=== PATIENT | female | born 1995 | race Hispanic/Latino ===

== ENCOUNTER 2022-04-02 18:20 | Outpatient (CLI) | payer OTHER ==
[~2022-04-02] VITALS: Ht 152.4 cm; Wt 77.0 kg
[2022-04-02] MEDS ORDERED: PRENTAB9 PO (18:57)
[2022-04-02] MEDS ORDERED: HOME MED LIST COMPLETE! XX SCH (19:00)
== END 2022-04-02 19:30 | disposition home or self-care (01) ==
LOC: M LDO 18:20
PROVIDERS: ATTEND Obstetrics & Gynecology
DX: O36.8120 Decreased fetal movements, second trimester, not applicable or unspecified (principal); Z3A.25 25 weeks gestation of pregnancy
CPT/HCPCS: 59025; G0463

== ENCOUNTER 2022-07-10 14:35 | Inpatient (IN) | payer OTHER ==
[~2022-07-10] VITALS: Ht 152.4 cm; Wt 84.7 kg
[2022-07-10] VITALS (8 sets, daily range): BP systolic 130–166; BP diastolic 65–92
[~2022-07-10 14:35] MED LIST: PRENTAB9 PO
[2022-07-10] MEDS ORDERED: TRANEXAMIC ACID INJection 1,000 MG in NS 100 ML IV PRN (15:45)
[2022-07-10] MEDS ORDERED: LR 1,000 ML IV SCH (15:45)
[2022-07-10] MEDS ORDERED: OXYTOCIN DRIP 30 UNITS in IV 1 EA IV PRN ×6 (15:45)
[2022-07-10] MEDS ORDERED: CARBOPROST TROMETHAMINE 250 MCG/ML AMP IM PRN (15:45)
[2022-07-10] MEDS ORDERED: METHYLERGONOVINE MALEATE 0.2 MG/ML VIAL (J2210) IM PRN (15:45)
[2022-07-10] MEDS ORDERED: OXYTOCIN INJ 10 UNITS/ML VIAL (J2590) IV PRN (15:45)
[2022-07-10] MEDS ORDERED: OXYTOCIN INJ 10 UNITS/ML VIAL (J2590) IM PRN (15:45)
[2022-07-10] MEDS ORDERED: LIDOCAINE 1% MDV 20ML VIAL INFIL PRN (15:45)
[2022-07-10 15:50] LABS: HEMATOCRIT 33.3 % (36.0-47.0); HEMOGLOBIN 11.3 g/dl (12.0-15.5); MEAN CORPUSCULAR HEMOGLOBIN 29.3 pg (27.0-33.0); MEAN CORPUSCULAR HGB CONC 33.9 g/dl (32.0-36.5); MEAN CORPUSCULAR VOLUME 86.3 fl (80.0-96.0); PLATELET COUNT, AUTOMATED 252 10^3/uL (150-450); RED BLOOD COUNT 3.86 10^6/uL (4.00-5.40); WHITE BLOOD COUNT 10.6 10^3/uL (4.0-10.0)
[2022-07-10] MEDS ORDERED: HOME MED LIST COMPLETE! XX SCH (15:55)
[2022-07-10] MEDS ORDERED: OXYTOCIN DRIP 30 UNITS in IV 1 EA IV SCH (22:30)
[2022-07-11] VITALS (112 sets, daily range): BP systolic 64–189; BP diastolic 29–97
[2022-07-11 01:44] LABS: ALT/SGPT 27 U/L (7.0-40); BILIRUBIN,TOTAL 0.5 MG/DL (0.3-1.2); CREATININE FOR GFR 0.46 MG/DL (0.55-1.30); GLOMERULAR FILTRATION RATE > 60.0 (>60); LDH LACTATE DEHYDROGENASE 240 U/L (120-246); URIC ACID 5.8 MG/DL (3.1-7.8)
[2022-07-11] MEDS ORDERED: BUTORPHANOL 2 MG/ML INJ (J0595) IV ONE (02:25)
[2022-07-11] MEDS ORDERED: PROMETHAZINE 25MG/ML 1ML VIAL IV ONE (02:25)
[2022-07-11] MEDS: LR 1,000 ML IV SCH (02:46)
[2022-07-11] MEDS ORDERED: hydrALAZINE 20MG/ML 1ML VIAL (J0360 PER 20MG) IV ONE (07:00)
[2022-07-11] MEDS ORDERED: MAGNESIUM *L&D* 4GM/100ML BAG (40MG/ML) IV ONE (07:00)
[2022-07-11] MEDS ORDERED: hydrALAZINE 20MG/ML 1ML VIAL (J0360 PER 20MG) As Ordered ONE (07:02)
[2022-07-11] MEDS: MAG Sulf (OBGYN) 20GM/500ML 20,000 MG in IV 1 EA IV SCH ×2 (07:10→16:21)
[2022-07-11] MEDS ORDERED: hydrALAZINE 20MG/ML 1ML VIAL (J0360 PER 20MG) IV STA (07:44)
[2022-07-11] MEDS ORDERED: LABETALOL 100MG/20ML VIAL IV ONE ×3 (08:45→10:10)
[2022-07-11] MEDS ORDERED: LABETALOL 100MG/20ML VIAL IV STA (12:30)
[2022-07-11] MEDS ORDERED: OXYTOCIN INJ 10 UNITS/ML VIAL (J2590) As Ordered ONE ×2 (14:09→15:22)
[2022-07-11 14:20] LABS: HEMATOCRIT 34.8 % (36.0-47.0); HEMOGLOBIN 11.8 g/dl (12.0-15.5); MEAN CORPUSCULAR HEMOGLOBIN 29.6 pg (27.0-33.0); MEAN CORPUSCULAR HGB CONC 33.9 g/dl (32.0-36.5); MEAN CORPUSCULAR VOLUME 87.4 fl (80.0-96.0); PLATELET COUNT, AUTOMATED 246 10^3/uL (150-450); RED BLOOD COUNT 3.98 10^6/uL (4.00-5.40); WHITE BLOOD COUNT 18.5 10^3/uL (4.0-10.0)
[2022-07-11] MEDS ORDERED: ceFAZolin SOD 2 GM in IV 1 EA IV ONE (14:20)
[2022-07-11] MEDS ORDERED: BICITRA 30ML SOLN UDC PO ONE (14:20)
[2022-07-11] MEDS ORDERED: AZITHROMYCIN INJ 500 MG, VIAL MATE ADAPTER 1 EACH in NS 250 ML IV ONE (14:20)
[2022-07-11] MEDS ORDERED: TRANEXAMIC ACID INJection 1,000 MG in NS 100 ML IV PRN (14:20)
[2022-07-11] MEDS ORDERED: ONDANSETRON 4MG 2ML VIAL As Ordered ONE (14:28)
[2022-07-11] MEDS ORDERED: KETOROLAC 60MG 2ML VIAL As Ordered ONE (14:28)
[2022-07-11] MEDS ORDERED: dexameTHASONE 4 MG/ML 1ML VIAL (J1100 PER 1MG) As Ordered ONE (14:28)
[2022-07-11] MEDS ORDERED: MORPHINE PRES-FREE INJ 10 MG/10 ML VIAL As Ordered ONE (14:28)
[2022-07-11] MEDS ORDERED: METOCLOPRAMIDE INJ 10MG/2ML VIAL (J2765 PER 1) As Ordered ONE (14:28)
[2022-07-11] MEDS ORDERED: ACETAMINOPHEN 1000MG 100ML IV BAG As Ordered ONE (14:29)
[2022-07-11 14:35] LABS: PROTHROMBIN TIME 13.4 SECONDS (12.5-14.5)
[2022-07-11] MEDS ORDERED: BUPIVACAINE HCL 0.25% 10ML VIAL SC PRN (14:35)
[2022-07-11] MEDS ORDERED: PHENYLephrine 500MCG 5ML (100MCG/ML) SYRINGE As Ordered ONE (15:35)
[2022-07-11] MEDS ORDERED: MAGNESIUM SULFATE 4% INJ 20GM/500ML (40MG/ML) As Ordered ONE (16:14)
[2022-07-11] MEDS ORDERED: ONDANSETRON 4MG 2ML VIAL IV PRN ×3 (16:15→19:50)
[2022-07-11] MEDS ORDERED: oxyCODONE 5MG TAB PO PRN ×4 (16:15→19:50)
[2022-07-11] MEDS ORDERED: SIMETHICONE 80MG CHEW TAB PO PRN (16:15)
[2022-07-11] MEDS ORDERED: MORPHINE 2 MG/ML 1ML VIAL IV PRN (16:15)
[2022-07-11] MEDS ORDERED: RHOGAM 300 MCG (1500 IU) INJ (J2790) IM SCH (16:15)
[2022-07-11] MEDS ORDERED: METHYLERGONOVINE MALEATE 0.2 MG TAB PO PRN (16:15)
[2022-07-11] MEDS ORDERED: OXYTOCIN DRIP 30 UNITS in IV 1 EA IV SCH (16:15)
[2022-07-11] MEDS ORDERED: ACETAMINOPHEN TAB 650MG DOSE (2X325MG) PO PRN (16:15)
[2022-07-11] MEDS ORDERED: DOCUSATE SODIUM 100MG CAPSULE PO PRN (16:15)
[2022-07-11] MEDS ORDERED: ANUSOL HC CREAM 30GM TOP PRN (16:15)
[2022-07-11] MEDS ORDERED: OXYTOCIN 30 UNITS IN 0.9% NaCl 500ML IV BAG (J2590) As Ordered ONE (16:22)
[2022-07-11] MEDS ORDERED: ePHEDrine SULFATE 25 MG/5 ML(5MG/ML) SYRINGE As Ordered ONE (16:26)
[2022-07-11] MEDS ORDERED: TRANEXAMIC ACID 100 MG/ML 10ML VIAL As Ordered ONE (16:39)
[2022-07-11] MEDS ORDERED: ePHEDrine INJ 50 MG/ML VIAL IV STA (17:43)
[2022-07-11 17:51] LABS: HEMATOCRIT 21.9 % (36.0-47.0); MEAN CORPUSCULAR HEMOGLOBIN 30.1 pg (27.0-33.0); MEAN CORPUSCULAR HGB CONC 33.8 g/dl (32.0-36.5); PLATELET COUNT, AUTOMATED 260 10^3/uL (150-450); RED BLOOD COUNT 2.46 10^6/uL (4.00-5.40); WHITE BLOOD COUNT 15.6 10^3/uL (4.0-10.0)
[2022-07-11 17:56] LABS: HEMOGLOBIN 7.4 g/dl (12.0-15.5)
[2022-07-11 18:31] LABS: INR 1.14; PROTHROMBIN TIME 14.9 SECONDS (12.5-14.5)
[2022-07-11 18:32] LABS: PARTIAL THROMBOPLASTIN TIME 31.7 SECONDS (24.8-34.2)
[2022-07-11] MEDS ORDERED: PHENYLephrine 500MCG 5ML (100MCG/ML) SYRINGE ONE (18:34)
[2022-07-11] MEDS ORDERED: ePHEDrine SULFATE 25 MG/5 ML(5MG/ML) SYRINGE ONE (18:34)
[2022-07-11] MEDS ORDERED: NALOXONE INJ 0.4MG/1ML VIAL (J2310 PER 1MG) IV PRN ×2 (18:45)
[2022-07-11] MEDS ORDERED: diphenhydrAMINE 50MG/ML VIAL IV PRN (18:45)
[2022-07-11] MEDS ORDERED: MEPERIDINE INJ 25 MG/ML VIAL (J2175) IV PRN (18:45)
[2022-07-11] MEDS ORDERED: HYDROMORPHONE HCL 0.5 MG/ 0.5 ML SYRINGE (J1170 PER 1) IV PRN (18:45)
[2022-07-11] MEDS ORDERED: METOCLOPRAMIDE INJ 10MG/2ML VIAL (J2765 PER 1) IV PRN (18:45)
[2022-07-11] MEDS ORDERED: **NOTE PATIENT COMMENT** MISC XX SCH (18:45)
[2022-07-11] MEDS ORDERED: fentaNYL 100 MCG/2 ML INJECTION IV PRN ×2 (18:45→19:50)
[2022-07-11] MEDS ORDERED: METHYLERGONOVINE MALEATE 0.2 MG/ML VIAL (J2210) IM ONE (19:00)
[2022-07-11] MEDS ORDERED: TRANEXAMIC ACID INJection 1,000 MG in D5W 100 ML IV ONE (19:00)
[2022-07-11] MEDS: SLF 3 ML SYR IV SCH (19:00)
[2022-07-11] MEDS ORDERED: LR 1,000 ML IV SCH (19:50)
[2022-07-11] MEDS ORDERED: METHYLERGONOVINE MALEATE 0.2 MG/ML VIAL (J2210) ONE (20:04)
[2022-07-11] MEDS: METHYLERGONOVINE MALEATE 0.2 MG TAB PO SCH (21:10)
[2022-07-11] MEDS: KETOROLAC 30 MG/ML 1ML VIAL IV SCH (21:11)
[2022-07-12] VITALS (13 sets, daily range): BP systolic 98–150; BP diastolic 51–67
[2022-07-12] MEDS: METHYLERGONOVINE MALEATE 0.2 MG TAB PO SCH ×3 (01:36→11:02)
[2022-07-12] MEDS: KETOROLAC 30 MG/ML 1ML VIAL IV SCH ×2 (02:52→11:03)
[2022-07-12] MEDS: LR 1,000 ML IV SCH (02:53)
[2022-07-12] MEDS: SLF 3 ML SYR IV SCH ×2 (03:00→11:04)
[2022-07-12 03:48] LABS: HEMATOCRIT 27.7 % (36.0-47.0); MEAN CORPUSCULAR HEMOGLOBIN 30.2 pg (27.0-33.0); MEAN CORPUSCULAR VOLUME 86.3 fl (80.0-96.0); PLATELET COUNT, AUTOMATED 211 10^3/uL (150-450); RED BLOOD COUNT 3.21 10^6/uL (4.00-5.40); WHITE BLOOD COUNT 18.4 10^3/uL (4.0-10.0)
[2022-07-12 03:58] LABS: HEMOGLOBIN 9.7 g/dl (12.0-15.5)
[2022-07-12 04:02] LABS: INR 1.08; PROTHROMBIN TIME 14.2 SECONDS (12.5-14.5)
[2022-07-12] MEDS ORDERED: ePHEDrine SULFATE 25 MG/5 ML(5MG/ML) SYRINGE ONE (09:43)
[2022-07-12] MEDS ORDERED: PHENYLephrine 500MCG 5ML (100MCG/ML) SYRINGE ONE (09:43)
[2022-07-12] MEDS: ACETAMINOPHEN 500 MG TAB PO PRN ×2 (11:35→21:46)
[2022-07-12] MEDS: PRENATAL VITAMINS CHEWABLE TABLET PO SCH (11:35)
[2022-07-12] MEDS: FERROUS SULFATE 325MG TAB PO SCH (11:35)
[2022-07-12] MEDS ORDERED: ENOXAPARIN 40MG/0.4ML SYRINGE (J1650 PER 10MG) SC SCH (15:00)
[2022-07-12] MEDS: IBUPROFEN 800 MG TAB PO SCH (17:11)
[2022-07-13] MEDS: IBUPROFEN 800 MG TAB PO SCH ×2 (00:20→08:10)
[2022-07-13 02:00] VITALS: BP 102/51
[2022-07-13 06:00] VITALS: BP 114/60
[2022-07-13] MEDS: PRENATAL VITAMINS CHEWABLE TABLET PO SCH (08:09)
[2022-07-13] MEDS: FERROUS SULFATE 325MG TAB PO SCH (08:09)
[2022-07-13] MEDS ORDERED: MEASLES,MUMPS,RUBELLA VACCINE INJ (MMR-II) (90707) SC.IMMUN ONE (09:00)
[2022-07-13 10:00] VITALS: BP 125/57
== END 2022-07-13 12:50 | disposition home or self-care (01) | DRG 772 ==
LOC: M LDO 14:35 → M LDI 15:47 → M OBS 07-12 11:24
PROVIDERS: ADMIT Advanced Practice Midwife; ATTEND Obstetrics & Gynecology
PROC: 10D00Z1 Extraction of Products of Conception, Low, Open Approach (ICD-10-PCS; principal; 2022-07-11)
PROC: 30233N1 Transfusion of Nonautologous Red Blood Cells into Peripheral Vein, Percutaneous Approach (ICD-10-PCS; 2022-07-12)
DX: O24.420 Gestational diabetes mellitus in childbirth, diet controlled (principal); O72.1 Other immediate postpartum hemorrhage; O99.214 Obesity complicating childbirth; Z3A.39 39 weeks gestation of pregnancy; Z37.0 Single live birth; O14.14 Severe pre-eclampsia complicating childbirth; O62.0 Primary inadequate contractions